=== PATIENT | female | born 1995 | race Two or more races ===

== ENCOUNTER 2016-11-05 12:35 | Inpatient (IN) | payer OTHER ==
[~2016-11-05] VITALS: Ht 167.6 cm; Wt 51.7 kg
--- NOTE | 2016-11-05 13:30 | NUR ---
BB SELF FROM HOME FOR NAUSEA/ VOMITING X 6 HOURS. COMPLAINS OF SEVERE ABD PAIN. NOTED ANXIOUS. DENIES TRAUMA. REPORTS HISTORY OF MARIJANA USE. 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 SAEFTY AND COMFORT MEASURES PROVIDED. WILL MONITOR.
[2016-11-05] MEDS ORDERED: HALOPERIDOL LACTATE INJ 5 MG/ML VIAL ONE (13:38)
[2016-11-05] MEDS ORDERED: ONDANSETRON HCL/PF 4 MG/2 ML VIAL ONE ×2 (13:38→16:10)
[2016-11-05] MEDS ORDERED: diphenhydrAMINE HCL 50 MG/ML VIAL ONE (13:38)
[2016-11-05] MEDS ORDERED: IV NS 0.9% 2,000 ML ONE (13:38)
[2016-11-05] MEDS ORDERED: IV SET PRIMARY PUMP SET 1 EA INFUS.SET MC ONE ×2 (13:39→20:40)
[2016-11-05] MEDS ORDERED: HALOPERIDOL LACTATE INJ 5 MG/ML VIAL IV ONE (14:00)
[2016-11-05] MEDS ORDERED: diphenhydrAMINE HCL 50 MG/ML VIAL IV ONE (14:00)
[2016-11-05] MEDS ORDERED: IV NS 0.9% 1,000 ML BAG IV ONE (14:00)
[2016-11-05] MEDS ORDERED: ONDANSETRON HCL/PF 4 MG/2 ML VIAL IVP ONE (14:00)
--- NOTE | 2016-11-05 14:00 | NUR ---
IV ACCESS STARTED. PT MEDICATED ORDERED.
--- NOTE | 2016-11-05 14:10 | NUR ---
PT REFUSES BLOOD DRAW AT THIS TIME. WELDING MACHINE OPERATOR THERMIT MADE AWARE.
--- NOTE | 2016-11-05 14:40 | NUR ---
BLOOD SUGAR CHECKED-200. JAMES DUNCAN MADE AWARE.
[2016-11-05 14:55] LABS: BASOPHILS % (AUTO) 0.2 % (0.0-2.0); EOSINOPHILS % (AUTO) 0.2 % (0.0-6.0); HEMATOCRIT 36 % (33-45); HEMOGLOBIN 12.3 g/dL (11.5-14.8); LYMPHOCYTES # (AUTO) 1.2 /CMM (0.8-4.8); LYMPHOCYTES % (AUTO) 6.2 % (20.0-44.0); MEAN CORPUSCULAR HEMOGLOBIN 29 PG (26.0-33.0); MEAN CORPUSCULAR HGB CONC 34 g/dl (31.0-36.0); MEAN CORPUSCULAR VOLUME 86 fL (82-100); MONOCYTES # (AUTO) 0.6 /CMM (0.1-1.30); MONOCYTES % (AUTO) 3.5 % (2.0-12.0); NEUTROPHILS # (AUTO) 16.8 /CMM (1.8-8.9); NEUTROPHILS % (AUTO) 89.9 % (43.0-81.0); PLATELET COUNT (AUTO) 281 /CMM (150-450); RDW COEFFICIENT OF VARIATION 15.1 (11.5-15.0); WHITE BLOOD COUNT (AUTO) 18.6 K/uL (4.3-11.0)
[2016-11-05 15:05] LABS: CREATININE 0.7 mg/dL (0.6-1.3); POTASSIUM 3.7 mmol/L (3.5-5.1)
[2016-11-05 15:11] LABS: ALBUMIN 3.7 g/dL (3.4-5.0); BILIRUBIN,DIRECT 0.1 mg/dL (0.0-0.2); BILIRUBIN,TOTAL 0.3 mg/dL (0.2-1.0); TOTAL PROTEIN, SERUM 7.4 g/dL (6.4-8.2)
[2016-11-05] MEDS ORDERED: METOCLOPRAMIDE HCL 10 MG/2 ML VIAL ONE (15:31)
--- NOTE | 2016-11-05 15:36 | NUR ---
CALLED NURSING SUP. FOR TELE BED
[2016-11-05 15:44] LABS: APPEARANCE,URINE Clear (CLEAR); BILIRUBIN,URINE Negative (NEGATIVE); BLOOD, URINE Negative Ery/uL (NEGATIVE); COLOR,URINE Yellow (YELLOW); KETONES,URINE >=160 (NEGATIVE); LEUKOCYTE ESTERASE ,URINE Negative (NEGATIVE); NITRITE, URINE Negative (NEGATIVE); PH,URINE 7.5 (5.0-8.0); PROTEIN,URINE 100 mg/dl (NEGATIVE); UROBILINOGEN,URINE 0.2 EU/dL (0.2)
[2016-11-05 15:45] LABS: UGLUCOSE 500 MG/DL mg/dL (NEGATIVE)
[2016-11-05 15:54] LABS: ADD URINE CULTURE NO; BACTERIA,URINE Few /HPF (None Seen); SQUAMOUS EPITHELIAL CELL,UR Few /HPF (None Seen); URINE AMORPHOUS PHOSPHATES Few /HPF (None Seen)
[2016-11-05 15:56] LABS: PREGNANCY TEST URINE QUAL NEGATIVE (NEGATIVE)
[2016-11-05] MEDS ORDERED: METOCLOPRAMIDE HCL 10 MG/2 ML VIAL IV ONE (16:00)
[2016-11-05] MEDS ORDERED: METO-295 PO (16:02)
[2016-11-05] MEDS ORDERED: OMEP20CA10 PO (16:02)
[2016-11-05] MEDS ORDERED: TRAZ-144 PO (16:02)
[2016-11-05] MEDS ORDERED: BUSP7.5T5 PO (16:02)
[2016-11-05] MEDS ORDERED: INSU100V7 SQ (16:02)
[2016-11-05] MEDS ORDERED: ONDA8TAB9 PO (16:02)
[2016-11-05] MEDS ORDERED: ALBU18HF2 IH (16:02)
[2016-11-05] MEDS ORDERED: INSU100V11 SQ (16:02)
[2016-11-05] MEDS ORDERED: BLOO-697 IN (16:02)
[2016-11-05 16:09] LABS: ABG BASE EXCESS -2.7 mmol/L; ABG OXYGEN SATURATION 72.7 % (92.0-98.5); ABG PCO2 38.7 mmHg (35.0-45.0); ABG PH 7.376 (7.350-7.450); ABG PO2 40.7 mmHg (75.0-100.0); ABG TOTAL HEMOGLOBIN 11.8 G/dL (12.0-16.0); COHb 1.2 % (0.5-1.5); MetHb 0.4 % (0.0-1.5); O2Hb 71.5 % (94.0-97.0); VENT MODE, BG ROOM AIR
[2016-11-05] MEDS ORDERED: PANTOPRAZOLE 40 MG VIAL ONE (16:10)
--- NOTE | 2016-11-05 16:12 | NUR ---
DR.TIM ABA ALEXANDER ELECTRIC BLANKET PACKER
[2016-11-05] MEDS ORDERED: ONDANSETRON HCL/PF - ER 4 MG/2 ML VIAL IV ONE (16:30)
[2016-11-05] MEDS ORDERED: PANTOPRAZOLE 40 MG VIAL IV ONE (16:30)
[2016-11-05] MEDS ORDERED: Magnesium 1GM/D5W 100ML PREMIX 200 ML IV ONE (16:31)
--- NOTE | 2016-11-05 17:00 | NUR ---
Patient is resting comfortably in bed with eyes closed. Easily aroused. VSS
--- NOTE | 2016-11-05 17:48 | NUR ---
REPORT GIVEN TO ABA CERNA FOR MS [id number]
--- NOTE | 2016-11-05 18:28 | NUR ---
MS/triage clinician New admission from ER with nausea/vomiting. Oriented to new surroundings, educated as to how to use call light, bed controls and TV. Bed in low setting, side rails X3 in upright position, call light within reach. Will endorse to highway worker to admit patient. Patient refused for vital signs to be taken.
[2016-11-05] MEDS ORDERED: ACETAMINOPHEN 325 MG TABLET PO PRN (18:30)
[2016-11-05] MEDS ORDERED: ONDANSETRON HCL/PF 4 MG/2 ML VIAL IVP PRN (18:30)
[2016-11-05] MEDS ORDERED: ONDANSETRON 4 MG TAB.RAPDIS SL PRN (18:30)
[2016-11-05] MEDS ORDERED: METOCLOPRAMIDE HCL 10 MG TABLET PO PRN (18:30)
[2016-11-05] MEDS ORDERED: ZOLPIDEM TARTRATE 5 MG TABLET PO PRN (18:30)
[2016-11-05] MEDS ORDERED: Z GUARD REMEDY 2 OZ OINT TP PRN (18:30)
[2016-11-05] MEDS ORDERED: LORAZEPAM INJ 2 MG/ML VIAL IV PRN (18:30)
[2016-11-05] MEDS ORDERED: ALBUTEROL FS 2.5 MG/3 ML VIAL.NEB NEB PRN ×2 (19:00→19:30)
--- NOTE | 2016-11-05 19:06 | NUR ---
MS RN CLOSING NOTES NO SIGNIFICANT CHANGES IN PATIENT CONDITION THROUGHOUT THE SHIFT. PATIENT IS RESTING COMFORTABLY IN BED. NO SOB OR DISTRESS NOTED. PATIENT DENIES PAIN. BED IN A LOW POSITION, CALL LIGHT WITHIN PATIENT REACH. WILL ENDORSE FOR KATIE.
[2016-11-05] MEDS ORDERED: DEXTROSE 50%-WATER 50 ML DISP.SYRIN IV PRN (19:30)
--- NOTE | 2016-11-05 19:35 | NUR ---
MS/RN OPENING NOTES PT ASLEEP, EASILY AROUSABLE TO NAME. A/OX4, ON ROOM AIR, NO SOB OR S/S OF DISTRESS NOTED. NOTES SLIGHT NAUSEA BUT NO VOMITING. ZOFRAN NOT DUE YET, BUT WILL BE OFFERED WHEN IT IS. DENIES PAIN AT THIS TIME. IV TO RIGHT WRIST PATENT AND INTACT. BED IN LOW/LOCKED POSITION WITH CALL LIGHT IN REACH. BED RAILS UPX2. ENCOURAGE PT TO USE CALL LIGHT FOR ASSISTANCE. WILL CONTINUE TO MONITOR
[2016-11-05 20:00] VITALS: BP 123/73
[2016-11-05] MEDS: IV NS 0.9% 1,000 ML IV PRN (20:51)
--- NOTE | 2016-11-05 21:00 | NUR ---
MS/RN NOTES PT EXPERIENCED 2 EPISODES OF CLEAR YELLOW EMESIS. ADMINISTERED PRN ZOFRAN DISSOLVABLE TABLET. WILL CONTINUE TO MONITOR
[2016-11-05 21:13] VITALS: BP 123/73
[2016-11-05] MEDS ORDERED: INSULIN DETEMIR 100 UNIT/ML CARTRIDGE SQ SCH (22:00)
[2016-11-05] MEDS: BLOOD SUGAR DIAGNOSTIC 1 EACH STRIP IN SCH (22:18)
[2016-11-05] MEDS: INSULIN REGULAR, HUMAN 100 UNIT/ML 3 ML VIAL SQ PRN (22:31)
--- NOTE | 2016-11-05 22:35 | NUR ---
MS/RN NOTES PT BLOOD ADGHO=[id number] ADMINISTERED SCHEDULED LEVEMIR 28UNITS AND 10UNITS OF REGULAR INSULIN PER SLIDING SCALE. SNACKS PROVIDED AT BEDSIDE. WILL MONITOR FOR S/S OF HYPOGLYCEMIA. PT NOTED THAT NAUSEA HAS IMPROVED WITH THE LAST DOSE OF ZOFRAN. WILL CONTINUE TO MONITOR
--- NOTE | 2016-11-06 04:45 | NUR ---
MS/RN NOTES CHECKED PT'S BLOOD SUGAR FOR MONITORING PURPOSES. BLOOD SUGAR IS 197.
[2016-11-06] MEDS: IV NS 0.9% 1,000 ML IV PRN (04:57)
[2016-11-06] MEDS: BLOOD SUGAR DIAGNOSTIC 1 EACH STRIP IN SCH ×2 (06:43→11:42)
--- NOTE | 2016-11-06 06:50 | NUR ---
MS/RN NOTES BLOOD [id number] PT STATES SHE IS FEELING BETTER BUT DOES NOT THINK SHE WILL BE ABLE TO EAT BREAKFAST. DID NOT ADMINISTER NOVOLOG AND HUMULIN
[2016-11-06] MEDS: INSULIN REGULAR, HUMAN 100 UNIT/ML 3 ML VIAL SQ PRN (06:54)
[2016-11-06] MEDS: INSULIN ASPART NOVOLOG 100 UNIT/ML CARTRIDGE SQ SCH ×2 (06:54→11:42)
--- NOTE | 2016-11-06 07:29 | NUR ---
MS/RN CLOSING NOTES PT AWAKE, A/OX4. ON ROOM AIR, BREATHING EVEN AND UNLABORED. NO S/S OF DISTRESS NOTED. DENIES PAIN. DENIES N/V AT THIS TIME. NO FURTHER EPISODES OF N/V AFTER ADMINISTRATION OF SL ZOFRAN. PT REFUSED SKIN ASSESSMENT, BUT SKIN APPEARS TO BE INTACT. IV TO RIGHT WRIST PATENT AND INTACT RUNNING IVF ORDERED. NO S/S OF INFILTRATION NOTED. HELD INSULIN THIS MORNING DUE TO PT STATING SHE MAY NOT BE ABLE TO EAT BREAKFAST, SHE DOES NOT HAVE AN APPETITE. BED IN LOW/LOCKED POSITION WITH CALL LIGHT IN REACH. BED RAILS UPX2. ENDORSED TO AM SHIFT KATIE.
[2016-11-06] MEDS ORDERED: PANTOPRAZOLE 40 MG TABLET.DR PO SCH (07:30)
[2016-11-06 07:37] LABS: BASOPHILS % (AUTO) 0.3 % (0.0-2.0); HEMATOCRIT 34 % (33-45); HEMOGLOBIN 11.2 g/dL (11.5-14.8); LYMPHOCYTES # (AUTO) 3.3 /CMM (0.8-4.8); LYMPHOCYTES % (AUTO) 19.9 % (20.0-44.0); MEAN CORPUSCULAR HEMOGLOBIN 28 PG (26.0-33.0); MEAN CORPUSCULAR HGB CONC 33 g/dl (31.0-36.0); MEAN CORPUSCULAR VOLUME 87 fL (82-100); MONOCYTES % (AUTO) 6.1 % (2.0-12.0); NEUTROPHILS # (AUTO) 12.2 /CMM (1.8-8.9); NEUTROPHILS % (AUTO) 73.7 % (43.0-81.0); PLATELET COUNT (AUTO) 302 /CMM (150-450); RDW COEFFICIENT OF VARIATION 16.1 (11.5-15.0); RED BLOOD CELL COUNT(AUTO) 3.94 MIL/uL (4.0-5.2); WHITE BLOOD COUNT (AUTO) 16.5 K/uL (4.3-11.0)
--- NOTE | 2016-11-06 07:47 | NUR ---
RN OPEN NOTES RECEIVED REPORT FROM UX DESIGN MANAGER NURSE. PATIENT IS IN BED, WITH HER EYE CLOSED, AROUSE EASILY TO CALLING HER NAME. BED IN LOW POSITION, LOCKED AND 2 SIDE RAILS ARE UP. NO SIGNS AND SYMPTOMS OF DISTRESS. IV SITE IS POTENT AND INTACT. WILL CONTINUE TO MONITOR AND ASSESS PATIENT.
[2016-11-06 08:01] LABS: ALBUMIN 3.1 g/dL (3.4-5.0); BILIRUBIN,TOTAL 0.5 mg/dL (0.2-1.0); CALCIUM, SERUM 8.3 mg/dL (8.5-10.1); CREATININE 0.6 mg/dL (0.6-1.3); MAGNESIUM 1.5 mg/dL (1.8-2.4); PHOSPHORUS 4.1 mg/dL (2.5-4.9); POTASSIUM 3.8 mmol/L (3.5-5.1); TOTAL PROTEIN, SERUM 6.4 g/dL (6.4-8.2)
[2016-11-06 08:03] LABS: THYROID STIMULATING HORMONE 1.582 uIU/mL (0.358-3.74)
--- NOTE | 2016-11-06 08:57 | NUR ---
RN NOTES PATIENT REFUSED HER MORNING MEDS. PATIENT REFUSED VITAL SIGNS
[2016-11-06] MEDS ORDERED: busPIRone 5 MG TABLET PO SCH (09:00)
--- NOTE | 2016-11-06 10:05 | NUR ---
CALLED MADE TO PATIENT'S ROC AT [phone]. NO ANSWER AND UNABLE TO LEAVE A MESSAGE DUE TO VOICE MAIL BEING FULL. Addendum: 11/06/16 at 1200 by SEEMA CABRERA RN 2ND CALL MADE TO . NO ANSWER
[2016-11-06] MEDS ORDERED: LORA1TAB82 PO (10:22)
[2016-11-06] MEDS ORDERED: SET RED CAP 1 EA INFUS.SET MC ONE (10:34)
[2016-11-06] MEDS ORDERED: SECONDARY IV SET 1 EA INFUS.SET MC ONE (10:34)
[2016-11-06] MEDS: Magnesium 1GM/D5W 100ML PREMIX 100 ML IV SCH ×2 (10:41→11:40)
--- NOTE | 2016-11-06 11:43 | NUR ---
RN NOTES PATIENT REFUSED BLOOD SUGAR CHECK. INSULIN DIDN'T ADMINISTER
--- NOTE | 2016-11-06 13:17 | NUR ---
Social Service consult requested by [facility]bin Forrest for drug use and possible homelessness. Per H&P by Dr. Calzada, pt. is a 21-year-old female who presented to the emergency department with persistent vomiting and nausea. Patient states that this is been going on for several hours prior to arrival. She complains of abdominal wall muscle pain from the persistent vomiting. Has a history of diabetes type I and cyclic vomiting syndrome. She does continue to smoke marijuana heavily which is a risk factor for cyclic vomiting syndrome. She was given IV fluids and antiemetics in the emergency department with little success. She be admitted for continued Antimedic therapy as well as IV fluid administration and close blood sugar control. FELIX met with pt. bedside. Pt. was lying in bed. FELIX introduced herself to pt. Pt. immediately became angry and stated she does n not need a SW. FELIX attempted to assist pt. and informed her that she is here to help her with resources. Pt. became more angry and started yelling saying, " go away, you are causing me anxiety." FELIX was unable to assess pt. due to her being uncooperative. NEHEMIAH Guzman informed FELIX that pt's did call back and will be picking her up today. FELIX informed NEHEMIAH Guzman to inquire with pt. if she needs resources. However. pt refused again to speak with FELIX.
--- NOTE | 2016-11-06 14:15 | NUR ---
PHARMACEUTICAL SALES NOTES PATIENT DISCHARGE ORDERS RECEIVED AND EXPLAINED TO PATIENT. PATIENT VERBALIZED UNDERSTANDING. ALL PERSONAL BELONGING WITH PATIENT AT TIME OF DISCHARGE. DENIED PAIN. NO SIGNS AND SYMPTOMS OF DISTRESS. PATIENT MEDICATION PRESCRIPTION SENT ELECTRONICALLY TO [facility], PATIENT RECEIVED PHARMACY ADDRESS. VITAL SIGNS ARE STABLE. PATIENT WAS ESCORTED TO MAIN LOBBY BY AN RN, WHERE HER WAS WAITING FOR HER. IV SITE REMOVED. ID BAND REMOVED.
== END 2016-11-06 15:00 | disposition home or self-care (01) | DRG 54 ==
LOC: ER 12:38 → TELE2 17:22 → MEDSG2 18:23
PROVIDERS: ADMIT Nurse Practitioner Acute Care; ATTEND Nurse Practitioner Acute Care
DX: G43.A0 Cyclical vomiting, in migraine, not intractable (principal); K31.84 Gastroparesis; E10.43 Type 1 diabetes mellitus with diabetic autonomic (poly)neuropathy; E86.0 Dehydration; D72.829 Elevated white blood cell count, unspecified; F17.210 Nicotine dependence, cigarettes, uncomplicated; F12.90 Cannabis use, unspecified, uncomplicated; Z79.4 Long term (current) use of insulin; R10.9 Unspecified abdominal pain
CPT/HCPCS: 36415; 36600; 80048-TC; 80053-TC; 80061-TC; 80076-TC; 81000-TC; 82010-TC; 82962-TC; 83690-TC; 83735-TC; 84100-TC; 84443-TC; 84703-TC; 85025-TC; 87081-TC; A4606; C9113; J1200; J1630; J1815; J2405; J2765; J3475; J7030; Q0162; Z7610

== ENCOUNTER 2021-10-02 00:03 | Emergency (ER) | payer OTHER ==
[~2021-10-02] VITALS: Ht 172.7 cm; Wt 56.7 kg
[~2021-10-02 00:03] MED LIST: ALBU18HF2 IH; BLOO-697 IN; BUSP7.5T7 PO; INSU100V11 SQ; INSU100V7 SQ; LORA-259 PO; METO-295 PO; OMEP20CA15 PO; ONDA8TAB9 PO; TRAZ-252 PO
--- NOTE | 2021-10-02 00:25 | NUR ---
CALLED FOR TRIAGE, NOT IN WAITING ROOM.
[2021-10-02 01:22] VITALS: BP 117/85
--- NOTE | 2021-10-02 01:25 | NUR ---
BIBS C/O LEFT FOOT PAIN S/P "STEPPED ON GLASS". PATIENT ALERT AN DORIENTED X3. AMBULATORY WITH NON LABORED BREATHING. NO LAC PRESENT. PATIENT IN BED 04 AWAITNG MD BEASLEY.
--- NOTE | 2021-10-02 02:31 | NUR ---
PATIENT ELOPED FROM ER. MD NOTIFIED. NO IV LINES WERE ESTABLISHED.
== END 2021-10-02 02:34 | disposition left against medical advice (07) ==
LOC: ER 00:11
DX: L03.116 Cellulitis of left lower limb (principal); E10.9 Type 1 diabetes mellitus without complications; Z79.899 Other long term (current) drug therapy; Z79.4 Long term (current) use of insulin